=== PATIENT | female | born 1980 ===

== ENCOUNTER 2019-08-15 10:17 | Emergency (ER) | payer BC ==
--- NOTE | 2019-08-15 10:42 | EDM.PDOC ---
ED HPI GENERAL MEDICAL PROBLEM - General Chief Complaint: ENT Problem Stated Complaint: DIZZY Time Seen by Provider: 08/15/19 10:23 - Related Data Allergies Allergy/AdvReac Type Severity Reaction Status Date / Time gluten Allergy Stomach Verified 05/15/16 14:34 Upset Home Meds: Home Meds Dicyclomine HCl [Bentyl] 10 mg PO TID PRN 05/15/16 [History] norgestimate-ethinyl estradioL [Sprintec 28 Day Tablet] 1 tab PO ASDIRECTED [History] Acetaminophen/oxyCODONE [Percocet 325-5 MG] 1 tab PO Q6H PRN #30 tablet [Rx] Past Medical History HEENT History: Reports: Other (See Below) Other HEENT History: wears glasses/contacts Gastrointestinal History: Reports: Celiac Disease, Other (See Below) Neurological History: Reports: Other (See Below) Other Neuro History: occasional tension headache - Past Surgical History HEENT Surgical History: Reports: Oral Surgery Departure - Discharge Information Referrals: PCP,None [Primary Care Provider] -
[2019-08-15] MEDS ORDERED: Ondansetron 4 MG/2 ML SDV IVPUSH ONE (10:44)
[2019-08-15] MEDS ORDERED: Sodium Chloride 0.9% 1,000 ML IV ONE (10:44)
[2019-08-15] MEDS ORDERED: Scopolamine 1.5 MG Transdermal Patch TRDERM ONE (10:49)
[2019-08-15] MEDS ORDERED: Scopolamine 1.5 MG Transdermal Patch ONE (10:53)
--- NOTE | 2019-08-15 10:54 | EDM.PDOC ---
ED HPI GENERAL MEDICAL PROBLEM - General Chief Complaint: ENT Problem Stated Complaint: DIZZY Time Seen by Provider: 08/15/19 10:23 Source of Information: Reports: Patient History Limitations: Reports: No Limitations - History of Present Illness INITIAL COMMENTS - FREE TEXT/NARRATIVE: HISTORY AND PHYSICAL: History of present illness: Patient is a 39-year-old female who presents to the emergency room with complaints of dizziness, nausea, vomiting and generally feeling unwell. She states last evening she noticed as she was going to bed that the room felt like it was spinning. This was worse when lying on either side and was somewhat alleviated if she laid flat on her back and did not move. This morning she woke up again feeling dizzy with some associated nausea. She attempted to lay still and eat some crackers and juice but as soon as she moved to get dressed for the day she became extremely dizzy and had nausea/vomiting. Approximately a week ago she had the sensation of fluid and fullness in both of her ears and feels like her hearing was slightly muffled but this resolved over the week. She does have a history of celiac disease and does have chronic abdominal pain and loose stools. Patient denies any fever, chills, headache, change in vision , syncope or near syncope. Denies any chest pain, back pain, shortness of breath or cough. Denies any constipation or dysuria. Has not noted any blood in urine or stool. Denies any chance of . Patient has been eating and drinking appropriately. Denies any injury or trauma. Patient was out at the [place] but has not had any tick bites or rashes noted. Review of systems: As per history of present illness and below otherwise all systems reviewed and negative. Past medical history: As per history of present illness and as reviewed below otherwise noncontributory. Surgical history: As per history of present illness and as reviewed below otherwise noncontributory. Social history: See social history for further information Family history: As per history of present illness and as reviewed below otherwise noncontributory. Physical exam: General: Well-developed and well-nourished 39-year-old female. Alert and oriented. Nontoxic-appearing and in no acute distress. HEENT: Atraumatic, normocephalic, pupils equal and reactive bilaterally, negative for conjunctival pallor or scleral icterus, mucous membranes moist, TMs normal bilaterally, throat clear, neck supple, nontender, trachea midline. Patient becomes very dizzy with head movementNo drooling or trismus noted. No meningeal signs. No hot potato voice noted. Lungs: Clear to auscultation, breath sounds equal bilaterally, chest nontender. Heart: S1S2, regular rate and rhythm without overt murmur Abdomen: Soft, nondistended, nontender. Negative for masses or hepatosplenomegaly. Negative for costovertebral tenderness. Pelvis: Stable nontender. Skin: Intact, warm, dry. No lesions or rashes noted. Extremities: Atraumatic, moves all extremities per self without difficulty or deficits, negative for cords or calf pain. Neurovascular unremarkable. Neuro: Awake, alert, oriented. Cranial nerves II through XII unremarkable. Cerebellum unremarkable. Motor and sensory unremarkable throughout. Exam nonfocal. Notes: Patient's lab work is unremarkable. Orthostatics show no significant findings. Head CT is within normal limits. Patient does feel improvement after the medications that were given while here. We did discuss the need for follow-up with primary care for further management of this. I will give her a prescription to start PT for vertigo treatment. We also discussed that she may need an MRI in the future if symptoms continue. Signs and symptoms that would prompt her to return to the emergency room were reviewed and discussed. Supportive care measures were reviewed and discussed. Voices understanding and is agreeable to plan of care. Denies any further questions or concerns at this time. Diagnostics: CBC, CMP, Troponin, EKG, UA, HCGU, Head CT, orthostatic vital signs Therapeutics: IV fluids, Zofran, Scopolamine Prescription: Zofran and Valium Impression: Vertigo Plan: 1. Take the Zofran (nausea pill) and Valium (Benzo for dizziness) as directed and as needed. The Valium caused some drowsiness so do not take it while driving or needing to be functioning outside of the house. 2. You have been given a prescription for physical therapy as they do have programming available for treatment of dizziness. You can call Friday to set up this appointment. I would also like you to follow-up with your primary care provider for reevaluation and further management of symptoms. Your head CT was normal today but you may need an MRI in the future, this will need to be prescribed by your primary care provider as well. 3. Drink plenty of fluids and rest the remainder of the day. Keep the scopolamine patch on over the next 72 hours, you may remove and throw away after that. 4. Turn to the ER as needed and as discussed. Definitive disposition and diagnosis as appropriate pending reevaluation and review of above. Abdomen Pain Score (Numeric/FACES): 3 - Related Data Allergies Allergy/AdvReac Type Severity Reaction Status Date / Time beef derived (bovine) Allergy Stomach Verified 08/15/19 10:46 Upset gluten Allergy Stomach Verified 05/15/16 14:34 Upset Home Meds: Home Meds norgestimate-ethinyl estradioL [Sprintec 28 Day Tablet] 1 tab PO ASDIRECTED [History] Ondansetron [Zofran ODT] 4 mg PO Q6H PRN #10 tab.dis 08/15/19 [Rx] diazePAM [Valium] 2 mg PO BID PRN #10 tab 08/15/19 [Rx] Past Medical History HEENT History: Reports: Other (See Below) Other HEENT History: wears glasses/contacts Gastrointestinal History: Reports: Celiac Disease, Other (See Below) Neurological History: Reports: Other (See Below) Other Neuro History: occasional tension headache - Past Surgical History HEENT Surgical History: Reports: Oral Surgery ED ROS GENERAL - Review of Systems Review Of Systems: Comprehensive ROS is negative, except as noted in HPI. ED EXAM, DIZZINESS - Physical Exam Exam: See Below (See dictation) Course - Vital Signs Last Recorded V/S: Last Vital Signs Temp 96.9 F 08/15/19 10:48 Pulse 71 08/15/19 12:25 Resp 18 08/15/19 12:25 BP 106/79 08/15/19 12:25 Pulse Ox 98 08/15/19 12:25 Orthostatic Blood Pressure [ 117/77 Standing] Orthostatic Blood Pressure [ 121/73 Sitting] Orthostatic Blood Pressure [ 127/85 Supine] - Orders/Labs/Meds Orders: Active Orders 24 hr Category Date Time Status EKG Documentation Completion [RC] STAT Care 08/15/19 10:44 Active Orthostatic Vital Signs [RC] ASDIRECTED Care 08/15/19 10:44 Active HCG QUALITATIVE,URINE [URCHEM] Stat Lab 08/15/19 10:44 Ordered UA RFX ASHUTOSH AND CULT IF INDIC [URIN] Stat Lab 08/15/19 10:44 Ordered Labs: Laboratory Tests 08/15/19 08/15/19 Range/Units 10:55 10:55 WBC 6.76 (4.0-11.0) K/uL RBC 4.65 (4.30-5.90) M/uL Hgb 13.8 (12.0-16.0) g/dL Hct 42.5 (36.0-46.0) % MCV 91.4 (80.0-98.0) fL MCH 29.7 (27.0-32.0) pg MCHC 32.5 (31.0-37.0) g/dL RDW Std Deviation 40.8 (28.0-62.0) fl RDW Coeff of Dwayne 12 (11.0-15.0) % Plt Count 230 (150-400) K/uL MPV 9.50 (7.40-12.00) fL Neut % (Auto) 82.9 H (48.0-80.0) % Lymph % (Auto) 11.4 L (16.0-40.0) % [place] % (Auto) 5.0 (0.0-15.0) % Eos % (Auto) 0.4 (0.0-7.0) % Baso % (Auto) 0.3 (0.0-1.5) % Neut # (Auto) 5.6 (1.4-5.7) K/uL Lymph # (Auto) 0.8 (0.6-2.4) K/uL [place] # (Auto) 0.3 (0.0-0.8) K/uL Eos # (Auto) 0.0 (0.0-0.7) K/uL Baso # (Auto) 0.0 (0.0-0.1) K/uL Nucleated RBC % 0.0 /100WBC Nucleated RBCs # 0 K/uL Sodium 134 L (136-145) mmol/L Potassium 3.7 (3.5-5.1) mmol/L Chloride 101 (98-107) mmol/L Carbon Dioxide 24.0 (21.0-32.0) mmol/L BUN 9 (7.0-18.0) mg/dL Creatinine 0.8 (0.6-1.0) mg/dL Est Cr Clr Drug Dosing 83.67 mL/min Estimated GFR (MDRD) > 60.0 ml/min Glucose 129 H (74-106) mg/dL Calcium 8.4 L (8.5-10.1) mg/dL Total Bilirubin 1.0 (0.2-1.0) mg/dL AST 15 (15-37) IU/L ALT 28 (14-63) IU/L Alkaline Phosphatase 55 (46-116) U/L Troponin I < 0.050 (0.000-0.056) ng/mL Total Protein 7.6 (6.4-8.2) g/dL Albumin 3.8 (3.4-5.0) g/dL Globulin 3.8 (2.6-4.0) g/dL Albumin/Globulin Ratio 1.0 (0.9-1.6) Meds: Medications Discontinued Medications Generic Name Dose Route Start Last Admin Trade Name Freq PRN Reason Stop Dose Admin Diazepam 5 mg 08/15/19 12:18 08/15/19 12:25 Valium. PO 08/15/19 12:19 5 mg ONETIME ONE Administration Sodium Chloride 1,000 mls @ 999 mls/hr 08/15/19 10:44 08/15/19 10:50 Normal Saline IV 08/15/19 11:44 999 mls/hr STAT ONE Administration Ondansetron HCl 4 mg 08/15/19 10:44 08/15/19 10:51 Zofran IVPUSH 08/15/19 10:45 4 mg ONETIME ONE Administration Scopolamine 1.5 mg 08/15/19 10:49 08/15/19 10:53 Transderm-Scop TRDERM 08/15/19 10:50 1.5 mg Q72H ONE Administration Scopolamine Confirm 08/15/19 10:53 08/15/19 11:02 Transderm-Scop Administered 08/15/19 10:54 Not Given Dose 1.5 mg .ROUTE .STK-MED ONE Departure - Departure Time of Disposition: 12:22 Disposition: Home, Self-Care 01 Clinical Impression: Vertigo - Discharge Information Prescriptions: diazePAM [Valium] 2 mg PO BID PRN #10 tab PRN Reason: Dizziness Ondansetron [Zofran ODT] 4 mg PO Q6H PRN #10 tab.dis PRN Reason: Nausea Instructions: Vertigo, [id number] Referrals: PCP,None [Primary Care Provider] - Forms: ED Department Discharge Additional Instructions: The following information is given to patients seen in the emergency department who are being discharged to home. This information is to outline your options for follow-up care. We provide all patients seen in our emergency department with a follow-up referral. The need for follow-up, as well as the timing and circumstances, are variable depending upon the specifics of your emergency department visit. If you don't have a primary care physician on staff, we will provide you with a referral. We always advise you to contact your personal physician following an emergency department visit to inform them of the circumstance of the visit and for follow-up with them and/or the need for any referrals to a consulting specialist. The emergency department will also refer you to a specialist when appropriate. This referral assures that you have the opportunity for follow-up care with a specialist. All of these measure are taken in an effort to provide you with optimal care, which includes your follow-up. Under all circumstances we always encourage you to contact your private physician who remains a resource for coordinating your care. When calling for follow-up care, please make the office aware that this follow-up is from your recent emergency room visit. If for any reason you are refused follow-up, please contact the [facility] Emergency Department at and asked to speak to the emergency department charge nurse. [facility] [address] [place] [id number] [facility] [address] [place] [phone] 1. Take the Zofran (nausea pill) and Valium (Benzo for dizziness) as directed and as needed. The Valium caused some drowsiness so do not take it while driving or needing to be functioning outside of the house. 2. You have been given a prescription for physical therapy as they do have programming available for treatment of dizziness. You can call [facility] to set up this appointment. I would also like you to follow-up with your primary care provider for reevaluation and further management of symptoms. Your head CT was normal today but you may need an MRI in the future, this will need to be prescribed by your primary care provider as well. 3. Drink plenty of fluids and rest the remainder of the day. Keep the scopolamine patch on over the next 72 hours, you may remove and throw away after that. 4. Turn to the ER as needed and as discussed. Sepsis Event Note - Focused Exam Vital Signs: Vital Signs Temp Pulse Resp BP Pulse Ox 08/15/19 12:25 71 18 106/79 98 08/15/19 10:48 96.9 F 80 20 137/87 100 Date Exam was Performed: 08/15/19 Time Exam was Performed: 12:27 - My Orders Last 24 Hours: My Active Orders 08/15/19 10:44 EKG Documentation Completion [RC] STAT Orthostatic Vital Signs [RC] ASDIRECTED HCG QUALITATIVE,URINE [URCHEM] Stat UA RFX ASHUTOSH AND CULT IF INDIC [URIN] Stat - Assessment/Plan Last 24 Hours: My Active Orders 08/15/19 10:44 EKG Documentation Completion [RC] STAT Orthostatic Vital Signs [RC] ASDIRECTED HCG QUALITATIVE,URINE [URCHEM] Stat UA RFX ASHUTOSH AND CULT IF INDIC [URIN] Stat
[2019-08-15 11:30] LABS: BLOOD UREA NITROGEN,BUN 9 mg/dL (7.0-18.0); CHLORIDE,CL 101 mmol/L (98-107); GLUCOSE RANDOM 129 mg/dL (74-106); POTASSIUM,K 3.7 mmol/L (3.5-5.1); SODIUM,NA 134 mmol/L (136-145)
--- NOTE | 2019-08-15 12:05 | CT ---
HISTORY: Vertigo. COMPARISON: None. TECHNIQUE: Noncontrast axial images were obtained through the brain. FINDINGS: Biswas-white matter differentiation is preserved. No evidence for acute intracranial hemorrhage or infarction. No midline shift or mass effect. The ventricles are nondilated and symmetric. No abnormal intra or extra-axial fluid collection. The bony calvaria are intact. Visualized paranasal sinuses and mastoid air cells are clear. IMPRESSION: No acute intracranial pathology. Please note that all CT scans at this facility use dose modulation, iterative reconstruction, and/or weight-based dosing when appropriate to reduce radiation dose to as low as reasonably achievable. Dictated by Merry Gimenez MD @ Aug 15 2019 12:04PM Signed by Dr. Merry Gimenez @ Aug 15 2019 12:04PM
[2019-08-15] MEDS ORDERED: Diazepam 5 MG Tab PO ONE (12:18)
== END 2019-08-15 13:34 | disposition home or self-care (01) ==
LOC: MW.ED 10:17
DX: R42 Dizziness and giddiness (principal); Z91.048 Other nonmedicinal substance allergy status; Z91.018 Allergy to other foods; Z79.899 Other long term (current) drug therapy
CPT/HCPCS: 36415; 70450; 80053; 84484; 85025; 93005; 96361; 96374; 99284; A9270; J2405; J7030; 99283